=== PATIENT | female | born 1935 | race Caucasian/White ===

== ENCOUNTER 2022-07-06 13:20 | Outpatient (CLI) | payer MEDICARE | END 2022-07-06 23:59 | disposition home or self-care (01) | LOC: WOU 13:20 | PROVIDERS: ATTEND Podiatrist Foot & Ankle Surgery | DX: Z09 Encounter for follow-up examination after completed treatment for conditions other than malignant neoplasm (principal); E11.42 Type 2 diabetes mellitus with diabetic polyneuropathy; Z86.31 Personal history of diabetic foot ulcer; R60.0 Localized edema; M79.675 Pain in left toe(s); M79.674 Pain in right toe(s); Z99.3 Dependence on wheelchair | CPT/HCPCS: G0463 ==

== ENCOUNTER → 2022-09-30 | Outpatient (CLI) | payer MEDICARE | END | disposition home or self-care (01) | LOC: WOU 10:32 | PROVIDERS: ATTEND Podiatrist Foot & Ankle Surgery | DX: B35.1 Tinea unguium (principal); E11.42 Type 2 diabetes mellitus with diabetic polyneuropathy; M79.675 Pain in left toe(s); M79.674 Pain in right toe(s); R60.0 Localized edema; Z74.09 Other reduced mobility; Z79.84 Long term (current) use of oral hypoglycemic drugs | CPT/HCPCS: G0463 ==